=== PATIENT | female | born 1990 | race Hispanic/Latino ===

== ENCOUNTER 2018-02-27 07:57 | Outpatient (CLI) | payer OTHER ==
--- NOTE | 2018-02-27 10:03 | ULT ---
ULTRASOUND ABDOMINAL WALL SOFT TISSUES: Date: 02/27/18 HISTORY: 27-year-old female with palpable, nontender suprapubic mass which first appeared approximately 3 mayra hs after liposuction procedure approximately 1 year ago. No change in size since then by palpation. FINDINGS: In the superficial subcutaneous adipose tissue at the region of the palpable lump, there is a well ci rcumscribed cystic structure, measuring approximately 2.5 x 1.5 x 3 cm. There is a tubular tail measu ring approximately 0.5 cm in caliber, extending laterally from it a distance of at least 3.5 cm long in the transverse dimension. The connelly of this cystic lesion are approximately 0.7-0.9 cm in thicknes s. No solid component is identified. No blood flow within it demonstrated by Doppler. IMPRESSION: A well circumscribed cystic lesion, and a tubular extension arising from it, in the superficial subcu taneous adipose tissues of the suprapubic region. Etiology is uncertain. Consider CT. POS: [facility]
== END 2018-02-27 07:58 | disposition home or self-care (01) ==
LOC: BICULT 07:57
PROVIDERS: ATTEND Family Medicine
DX: R19.00 Intra-abdominal and pelvic swelling, mass and lump, unspecified site (principal)
CPT/HCPCS: 76705

== ENCOUNTER 2018-05-01 10:02 | Outpatient (CLI) | payer OTHER ==
--- NOTE | 2018-05-01 11:38 | CT ---
CT OF ABDOMEN AND PELVIS: Date: 05-01-18 Comparison: None. History: Palpable non-tender superpubic mass. Technique: Axial CT imaging at 5 mm intervals from lung bases through pubic symphysis with IV contras t. Coronal reformatted imaging obtained. FINDINGS: The imaged lung bases appear unremarkable. No free intraperitoneal air. The liver, gallbladder, spleen, pancreas, adrenal glands, and kidneys are unremarkable. Trace free fluid noted in the pelvic cul-de-sac on the right. Noncontrast enhanced appearance of the bowel appears grossly unremarkable. Vascular structures of the abdomen/pelvis demonstrate patency. No lymphadenopathy is noted within the abdomen or pelvis. There is an area of palpable concern marked on the patient's skin in the anterior midline pelvic yvette on. Just deep to the marker within the subcutaneous fat there is an oval lesion measuring 4.8 x 1.5 x 2.5 cm which demonstrates central fat attenuation, most consistent with an area of fat necrosis or a subcutaneous lipoma. Review of the osseous structure demonstrates no worrisome lytic or blastic lesion. Lower lumbar spine facet hypertrophic change noted. IMPRESSION: In the area of palpable concern, there is a subcutaneous fatty mass most consistent with lipoma and/o r fat necrosis. POS: [facility]
[2018-05-01] MEDS ORDERED: ISOVUE-370 76%-LOCM 1 ML ONE (16:59)
== END 2018-05-01 10:03 | disposition home or self-care (01) ==
LOC: BICCT 10:02
PROVIDERS: ATTEND Family Medicine
DX: R19.00 Intra-abdominal and pelvic swelling, mass and lump, unspecified site (principal)
CPT/HCPCS: 74177; Q9966